=== PATIENT | male | born 1985 | race Caucasian/White ===

== ENCOUNTER 2021-06-30 22:14 | Emergency (ER) | payer OTHER, SELFPAY ==
--- NOTE | 2021-06-30 22:18 | XRR_ITS ---
PROCEDURE INFORMATION: Exam: XR Chest Exam date and time: 06/30/2021 10:18 PM Age: 35 years old Clinical indication: Shortness of breath; Additional info: SOB TECHNIQUE: Imaging protocol: XR of the chest. Views: 1 view. COMPARISON: CR Chest 2 views* [id number] 11/08/2018 1:04 AM FINDINGS: Lungs: Unremarkable. No consolidation. Pleural spaces: Unremarkable. No pleural effusion. No pneumothorax. Heart/Mediastinum: Unremarkable. No cardiomegaly. Bones/joints: Unremarkable. XR/XR chest 1V portable [id number] IMPRESSION: No acute findings.
[2021-06-30 22:25] VITALS: BP 135/81; PULSE 117; RESP 20; TEMP 37.4; O2SAT 95; BMI 33.0
--- NOTE | 2021-06-30 23:30 | W.ED.SOB ---
HPI - SOB/Dyspnea General: Chief Complaint: Shortness of Breath/Dyspnea Stated Complaint: SOB Time Seen by Provider: 06/30/21 22:29 Source: patient Mode of arrival: ambulatory Limitations: no limitations History of Present Illness: HPI Narrative: 35-year-old male states has been having wheezing or shortness of breath of the last 2 days he states he also had a very slight cough at times as well states cough is nonproductive he said low-grade fevers. He states that his dyspnea is worsened much today and he does have audible wheezing here. Denies any worsening improving factors states had a similar episode 2 years ago that improved with breathing treatments but was never told there was no history of asthma denies any recent long trips denies any chest pain. Associated symptoms: Deny abdominal pain, chest pain, fever(s), nausea or vomiting Review of Systems Const: Denies: fever(s), chills, body aches or change in appetite Eyes: Denies: blurry vision or eye discomfort ENMT: Denies: throat pain or dental pain Card: Denies: chest pain Resp: Reports: dyspnea, non-productive cough and wheezing GI: Denies: abdominal pain, nausea, vomiting or diarrhea : Denies: dysuria Musc: Denies: neck pain or back pain Skin/Breast: Denies: rash Neuro: Denies: headache(s) Psych: Denies: depression Jame/Lymph: Denies: easy bruising All/Imm: Denies: urticaria Physical Exam Const: COMMON NORMALS: no acute distress, patient oriented x3 and healthy appearing HENMT: COMMON NORMALS: normocephalic and atraumatic HEAD & SCALP: normocephalic and atraumatic Eye: COMMON NORMALS: Equal, round and reactive pupils present and EOMs intact bilaterally PUPIL: Yes Equal, round and reactive pupils present Neck/C-Spine: COMMON NORMALS: full ROM and supple Chest: COMMONS NORMALS: normal inspection of the chest and normal palpation of entire chest wall Resp: COMMON NORMALS: normal respiratory effort, No retractions and No use of accessory muscles AUSCULTATION: wheezes Cardio: COMMON NORMALS: regular rate, regular rhythm and No murmurs present (Cardio) RATE: regular rate RHYTHM: regular rhythm GI: COMMON NORMALS: Normal to inspection, nondistended, normoactive bowel sounds present, Soft to palpation, non-tender and no masses PALPATION: Yes Soft to palpation Extremity: COMMON NORMALS: normal to inspection and full ROM Neuro: COMMON NORMALS: patient oriented x3, moves all extremities and no focal motor deficits Psych: COMMON NORMALS: mental status grossly normal, Normal thought process present and cooperative THOUGHT PROCESS: Normal thought process present Skin: COMMON NORMALS: no rashes or lesions noted and no wounds GENERAL SKIN EXAM: no rashes or lesions noted Course Vital Signs: Vital signs: Vital Signs Temperature 99.3 F 06/30/21 22:25 Pulse Rate 124 H 06/30/21 23:59 Respiratory Rate 20 H 06/30/21 23:59 Blood Pressure 135/81 06/30/21 22:25 Pulse Oximetry 96 06/30/21 23:59 MDM - SOB/Dyspnea MDM Narrative: Medical decision making narrative: Patient presents here with wheezing since resolved here after breathing treatment patient likely has a bronchitis x-ray here shows no pneumonia blood work is normal as well he feels much improved his D-dimer is negative no signs of pulmonary Alder will start him on albuterol inhaler along with steroids he is to follow-up his PCP in 3 to 5 days return if worsening he understands agrees to plan. Lab Data: Labs: Lab Results 07/01/21 07/01/21 07/01/21 00:14 00:14 00:14 WBC 13.8 10^3/uL H 10 ^3/uL (4.0-10.0) RBC 5.83 10^6/uL H 10 ^6/uL (4.1-5.3) Hgb 16.3 g/dL g/dL (11.7-16.6) Hct 49.9 % % (42.0-52.0) MCV 85.6 fl fl (80-94) MCH 28.0 pg pg (28.0-34.0) MCHC 32.7 g/dL g/dL (30.0-36.0) RDW 12.7 % % (12.1-15.1) Plt Count 174 10^3/cmm 10^3 /cmm (130-400) MPV 11.8 fL H fL (7.4-10.4) Neut % (Auto) 62.1 % % Lymph % (Auto) 21.2 % % [place] % (Auto) 12.5 % % Eos % (Auto) 3.0 % % Baso % (Auto) 0.8 % % Neut # (Auto) 8.60 10^3/uL H 10 ^3/uL (1.8-7.7) Lymph # (Auto) 2.9 10^3/uL 10^3/ uL (0.8-4.8) [place] # (Auto) 1.7 10^3/uL H 10^ 3/uL (0.2-0.9) Eos # (Auto) 0.4 10^3/uL 10^3/ uL (0.0-0.8) Baso # (Auto) 0.1 10^3/uL 10^3/ uL (0.0-0.1) Nucleated RBC % (a uto) 0 % % Nucleated RBCs # 0.0 /100WBC /100W BC D-Dimer 0.43 ug/mIFEU ug/ mIFEU (0-0.59) Sodium 140 mmol/L mmol/L (136-145) Potassium 4.0 mmol/L mmol/L (3.5-5.1) Chloride 100 mmol/L mmol/L (98-107) Carbon Dioxide 21 mmol/L L mmol/ L (22-29) Anion Gap 23.0 H (5-19) BUN 11 mg/dL mg/dL (6-20) Creatinine 0.8 mg/dL mg/dL (0.7-1.2) GFR Calculation 111.3 mL/min mL/m in (90-130) Glucose 107 mg/dL mg/dL (65-115) Calculated Osmolal ity 290 mOsm/kg mOsm/ kg (285-295) Calcium 9.6 mg/dL mg/dL (8.5-10.5) Total Bilirubin 0.8 mg/dL mg/dL (0.15-1.2) AST 20 U/L U/L (0-40) ALT 35 U/L U/L (0-41) Alkaline Phosphata se 55 IU/L IU/L (40-130) NT-Pro-B Natriuret Pep 12 pg/mL pg/mL (0-125) Total Protein 7.9 g/dL g/dL (6.6-8.7) Albumin 4.8 g/dL g/dL (3.5-5.2) Globulin 3.1 g/dL g/dL (1.3-4.6) Imaging Data^: CXR: Attestation: I personally reviewed and interpreted this imaging study as follows: Radiologist's impression: [address] [address] XRay Report Signed Patient: Ángel Wooten Unit #: [id number] : 1985 Age/Sex: 35 / M ADM Date: 06/30/21 Loc: ER Room/Bed: Attending Dr: Ordering Provider/Ordering MD: Kwan Sen MD Date of Service: 06/30/21 Procedure(s): XR chest 1V portable [id number] Accession Number(s): [id number] Report Number: [id number] PROCEDURE INFORMATION: Exam: XR Chest Exam date and time: 06/30/2021 10:18 PM Age: 35 years old Clinical indication: Shortness of breath; Additional info: SOB TECHNIQUE: Imaging protocol: XR of the chest. Views: 1 view. COMPARISON: CR Chest 2 views* [id number] 11/08/2018 1:04 AM FINDINGS: Lungs: Unremarkable. No consolidation. Pleural spaces: Unremarkable. No pleural effusion. No pneumothorax. Heart/Mediastinum: Unremarkable. No cardiomegaly. Bones/joints: Unremarkable. XR/XR chest 1V portable [id number] IMPRESSION: No acute findings. Dictated By: Hernandez Ko MD Signed By: Hernandez Ko MD Signed Date/Time: 07/01/21101 DD/ 2218 Discharge Plan Discharge Patient Disposition: Home Clinical Impression: Bronchitis Condition: Stable Prescriptions: New prednisone 50 mg tablet 50 mg PO DAILY Qty: 5 RF: 0 albuterol sulfate 90 mcg/actuation HFA aerosol inhaler 2 inh INHALATION Q6H PRN (Reason: shortness of breath or wheezing) Qty: 8 RF: 0 Discharge Orders: Discharge ED (Routine); Ordered 07/01/21 Ordered By: Kwan Sen Discharge Diet: Advance as tolerated Discharge Activity: Resume usual activity Patient Instructions: Bronchitis (Acute) - Adult Coding Level of Care Code ED Assistant Project Engineer for Chg Fwd Exam Comprehensive
[2021-06-30 23:52] VITALS: PULSE 120; RESP 20; O2SAT 94
[2021-06-30] MEDS: ipratropium-albuterol 3 mL Neb INHALATION (23:53)
[2021-06-30 23:59] VITALS: PULSE 124; RESP 20; O2SAT 96
[2021-07-01] MEDS: acetaminophen 325 mg Tablet 650 MG PO (00:10)
[2021-07-01 00:33] LABS: Basophils # 0.1 10^3/uL (0.0-0.1); Basophils % 0.8 %; Eosinophils # 0.4 10^3/uL (0.0-0.8); Hematocrit 49.9 % (42.0-52.0); Hemoglobin 16.3 g/dL (11.7-16.6); Lymphocytes # 2.9 10^3/uL (0.8-4.8); Lymphocytes % 21.2 %; Mean Corpuscular HGB Conc 32.7 g/dL (30.0-36.0); Mean Corpuscular Volume 85.6 fl (80-94); Mean Platelet Volume 11.8 fL (7.4-10.4); Monocytes # 1.7 10^3/uL (0.2-0.9); Monocytes % 12.5 %; Neutrophils % 62.1 %; Nucleated Red Blood Cells % 0 %; Platelet Count 174 10^3/cmm (130-400); Red Blood Count 5.83 10^6/uL (4.1-5.3); Red Cell Distribution Width 12.7 % (12.1-15.1); White Blood Count 13.8 10^3/uL (4.0-10.0)
[2021-07-01 00:50] LABS: D Dimer 0.43 ug/mIFEU (0-0.59)
[2021-07-01 01:02] LABS: Alanine Aminotransferase 35 U/L (0-41); Albumin Level 4.8 g/dL (3.5-5.2); Alkaline Phosphatase 55 IU/L (40-130); Aspartate Amino Transferase 20 U/L (0-40); Blood Urea Nitrogen 11 mg/dL (6-20); Calcium 9.6 mg/dL (8.5-10.5); Carbon Dioxide 21 mmol/L (22-29); Chloride 100 mmol/L (98-107); Globulin 3.1 g/dL (1.3-4.6); Glomerular Filtration Rate 111.3 mL/min (90-130); Glucose 107 mg/dL (65-115); NT Pro B Type Natriuretic Pept 12 pg/mL (0-125); Osmolality Calculated 290 mOsm/kg (285-295); Sodium 140 mmol/L (136-145); Total Bilirubin 0.8 mg/dL (0.15-1.2); Total Protein 7.9 g/dL (6.6-8.7)
[2021-07-01 01:28] VITALS: BP 128/83; PULSE 116; RESP 18; O2SAT 94
[2021-07-01 14:07] LABS: Coronavirus Test Green County Not Detected
--- NOTE | 2021-07-02 15:58 | PC.NURSE ---
Patient notified of COVID-19 test results
== END 2021-07-01 01:57 | disposition home or self-care (01) ==
PROVIDERS: Emergency Provider Emergency Medicine
DX: J40 Bronchitis, not specified as acute or chronic (principal); Z20.822 Contact with and (suspected) exposure to COVID-19
CPT/HCPCS: 71045; 80053; 83880; 85025; 85378; 87635; 94640; 96374; 99283; J2930; J7611